=== PATIENT | female | born 1950 | race Caucasian/White ===

== ENCOUNTER 2022-05-02 14:28 | Emergency (ER) | payer MEDICARE, SELFPAY ==
[2022-05-02 14:37] VITALS: BP 164/93; PULSE 75; RESP 18; TEMP 35.9; O2SAT 99
--- NOTE | 2022-05-02 15:15 | DI.RAD_ITS ---
Exam(s) XR KNEE LT 3V AP,LAT,KUSUM EXAM: XR KNEE LT 3V AP,LAT,KUSUM CLINICAL HISTORY: lateral knee pain. TECHNIQUE: 2D digital imaging was performed of the left knee. Three images were obtained. AP, late ral and PA tunnel views were obtained. COMPARISON: No exams were available for comparison FINDINGS: BONES: No acute fracture is present. No bony destructive lesion is seen. JOINTS: The knee is normally aligned. No joint effusion is seen. Small spurs are seen at the posterio r patella. SOFT TISSUE: Normal. IMPRESSION: No acute abnormality. DATA REPOSITORY: RADIATION DOSE DELIVERED:
--- NOTE | 2022-05-02 15:15 | DI.RAD_ITS ---
Exam(s) XR WRIST LT COMPLETE EXAM: XR WRIST LT COMPLETE CLINICAL HISTORY: deformity. TECHNIQUE: 2D digital imaging was performed of the left wrist. Three images were obtained. PA, obl ique and lateral views were obtained. COMPARISON: No exams were available for comparison FINDINGS: BONES: There is an acute common fracture through the distal metaphysis of the left radius. There gregory s appear to be extension into the radiocarpal joint. The distal fracture is dorsally angulated. The re also appears to be a fracture through the ulnar styloid process which is displaced. No bony destr uctive lesion is seen. JOINTS: The carpal bones are normally aligned. SOFT TISSUE: There is soft tissue swelling. IMPRESSION: 1. Angulated intra-articular distal radial fracture. 2. Ulnar styloid process fracture. DATA REPOSITORY: RADIATION DOSE DELIVERED:
--- NOTE | 2022-05-02 15:15 | DI.RAD_ITS ---
Exam(s) XR ANKLE LT COMPLETE EXAM: XR ANKLE LT COMPLETE CLINICAL HISTORY: lateral knee pain TECHNIQUE: 2D digital imaging was performed of the left ankle. Three images were obtained. AP, lat eral and oblique views were obtained. COMPARISON: No exams were available for comparison FINDINGS: BONES: No acute fracture is present. No bony destructive lesion is seen. JOINTS:The ankle mortise is normally aligned. SOFT TISSUE: Normal. IMPRESSION: No acute fracture or dislocation. DATA REPOSITORY: RADIATION DOSE DELIVERED:
--- NOTE | 2022-05-02 15:39 | ED.GENADUL_ITS ---
Discharge Plan Disposition Patient Disposition: Home Condition: Good Discharge Details Clinical Impression: Closed fracture of left distal radius, Injury while downhill skiing, Fracture of ulnar styloid Primary Care Provider: Diya,Local ED Provider: Kosta De La Cruz Home Meds and New Rx's Prescriptions: No Action clonazepam 0.5 mg Tablet 0.5 mg PO BID escitalopram oxalate 20 mg Tablet 20 mg PO DAILY levothyroxine 75 mcg Tablet 75 mcg PO DAILY omeprazole 20 mg Capsule,Delayed Release(Dr/Ec) 20 mg PO DAILY selenium 200 mcg Capsule 200 mcg PO QDAY valacyclovir 500 mg Tablet 500 mg PO BID cholecalciferol (vitamin D3) [Vitamin D3] 125 mcg (5,000 unit) Tablet 5,000 unit PO DAILY cyclobenzaprine 10 mg Tablet 10 mg PO TID PRN albuterol 90 mcg/actuation Aerosol 90 mcg INHALATION Discharge Instructions Instructions: Wrist Fracture in Adults (ED) Additional Instructions: At this time your x-ray of your knee and ankle are negative, however as you know there was a fracture of your wrist that was reduced by Dr. Subramanian. They would l charan to follow-up with you closely, they will contact you Thursday morning for an appointment time. In the meantime please take Tylenol as needed, ice the wrist frequently, and take the [place] pain pills only as needed for breakthrough pain. If you notice any worsening pain, viselike sensation, new numbness or tingling, return immediately for reassessment. If you notice any worsening of your symptoms, or any new symptoms such as vomiting, diarrhea, fever, chills, shortness of breath, chest pain, numbness, weakness, or fainting , please return immediately to the emergency department for reevaluation. Please follow up with your primary care provider as soon as possible for reassessment and reevaluation. As always, it was a pleasure participating in your medical care today. Referrals: Thomas Subramanian MD [ [facility]YS[facility]] - Medical Decision Making 71-year-old female with a past medical history of right hand dominance, previous left wrist fracture, previous left ankle fracture, and previous left knee meniscal injury, as well as hypothyroidism and mild depression who presents today for evaluation after ski injury. Patient states that she was skiing and she fell onto her left knee and left ankle, twisting both of these, and also twisted her left wrist with her ski pole. Pain was immediate. She was brought down by the ski team. She has pain with movement of the wrist knee and ankle. She denies any numbness or tingling. She did not hit her head. No other trauma, no other complaints or pain. Exam demonstrates notable tenderness at the left wrist at the distal aspect of the radius and ulna, with angulation concerning for fracture. Neurovascular exam distally is notably intact. Left knee demonstrates mild lateral tenderness, left ankle demonstrates mild lateral tenderness. Fracture unlikely for the knee and ankle, suspect ligamentous injury. We will get x-ray of the knee, ankle, and wrist. We will treat with Tylenol, ice, monitor closely and reassess. 5 PM X-ray of the knee and ankle are negative for acute process. There is clear fracture of the left wrist at the distal radius and the ulnar styloid process. Due to the size and nature of the fracture, it certainly does need reduction. Unfortunately right now secondary to staffing we do not have the appropriate nursing staff and respiratory therapy staff to perform a conscious sedation. We will wait until 7 PM for staff to perform this. 6:[address] Thomas Subramanian was watching the board, and he did come over to offer assistance. He volunteered to do a hematoma block of the patient. Patient agreed and consented to this. Dr. Subramanian performed hematoma block and subsequent reduction. He recommends follow-up in the next 1 to 2 weeks. He will contact the patient on Thursday for her appointment time. We will get repeat x-ray at this time post reduction. 7:27 PM Repeat x-ray shows notable improvement, secondary to an excellent reduction by Dr. Subramanian. Patient on reassessment demonstrates brisk capillary refill, good neurovascular exam, no signs of neurovascular compromise. Patient appropriate and stable for discharge. I have extensively reviewed the treatment plan and discharge instructions with the patient and their family. I have addressed all patient concerns at this time. The patient and family was made aware of what symptoms to monitor for that would warrant a return to the emergency department. Discussed the plan with the patient and family, they demonstrate verbal understanding and agreement with our assessment and plan at this time. The documentation in this chart was dictated using [employer] dictation software. Please excuse any dictation errors. FINDINGS: Tubes, catheters and devices: Splint in place. Bones/joints: Distal radial metaphyseal and articular fractures demonstrates 8 mm impaction at the lateral cortical margin with about 4 mm residual posterior displacement of the distal fragment which is unchanged, without significant angulation currently. Ulnar styloid avulsion with 7 mm lateral displacement of the avulsion fragment not significantly changed. No gross carpal bone fracture or malalignment. Visualized metacarpals and phalanges are intact. Soft tissues: Soft tissue swelling around the wrist. IMPRESSION: Splint in place with improved post reduction alignment of the distal radial fracture, now without significant angulation although there is persistent displacement and impaction. Displaced ulnar styloid avulsion unchanged. Thank you for allowing us to participate in the care of your patient. Dictated and Authenticated by: Shahriar Vasques MD 05/02/2022 7:18 PM Eastern Time ([place] & [place] FINDINGS: BONES: There is an acute common fracture through the distal metaphysis of the left radius. There does appear to be extension into the radiocarpal joint. The distal fracture is dorsally angulated. There also appears to be a fracture through the ulnar styloid process which is displaced. No bony destructive lesion is seen. JOINTS: The carpal bones are normally aligned. SOFT TISSUE: There is soft tissue swelling. IMPRESSION: 1. Angulated intra-articular distal radial fracture. 2. Ulnar styloid process fracture. FINDINGS: BONES: No acute fracture is present. No bony destructive lesion is seen. JOINTS: The knee is normally aligned. No joint effusion is seen. Small spurs are seen at the posterior patella. SOFT TISSUE: Normal. IMPRESSION: No acute abnormality. FINDINGS: BONES: No acute fracture is present. No bony destructive lesion is seen. JOINTS:The ankle mortise is normally aligned. SOFT TISSUE: Normal. IMPRESSION: No acute fracture or dislocation. HPI General Date/Time Provider Initiated Documentation: 05/02/22 15:12 . HPI Narrative: 71-year-old female with a past medical history of right hand dominance, previous left wrist fracture, previous left ankle fracture, and previous left knee meniscal injury, as well as hypothyroidism and mild depression who presents today for evaluation after ski injury. Patient states that she was skiing and she fell onto her left knee and left ankle, twisting both of these, and also twisted her left wrist with her ski pole. Pain was immediate. She was brought down by the ski team. She has pain with movement of the wrist knee and ankle. She denies any numbness or tingling. She did not hit her head. No other trauma, no other complaints or pain. Related Data Home Medications Medication Instructions Recorded Confirmed albuterol 90 mcg/actuation aerosol 90 mcg inhalation 05/02/22 inhaler cholecalciferol (vitamin D3) 125 5,000 unit PO DAILY 05/02/22 05/02/22 mcg (5,000 unit) tablet (Vitamin D3) clonazepam 0.5 mg tablet 0.5 mg PO BID anxiety 05/02/22 05/02/22 cyclobenzaprine 10 mg tablet 10 mg PO TID PRN 05/02/22 05/02/22 escitalopram oxalate 20 mg tablet 20 mg PO DAILY 05/02/22 05/02/22 levothyroxine 75 mcg tablet 75 mcg PO DAILY 05/02/22 05/02/22 omeprazole 20 mg capsule,delayed 20 mg PO DAILY 05/02/22 05/02/22 release selenium 200 mcg capsule 200 mcg PO QDAY 05/02/22 05/02/22 valacyclovir 500 mg tablet 500 mg PO BID 05/02/22 05/02/22 General Stated Complaint: Orthopedic HIREN: 3 Review of Systems All systems reviewed & are unremarkable except as noted in HPI and below PFSH All Active Problems (Updated 05/02/22 @ 19:29 by Kosta De La Cruz DO) Injury while downhill skiing (Acute) Fracture of ulnar styloid (Acute) Closed fracture of left distal radius (Acute 05/02/22) Social History Smoking risk assessment performed?: No Alcohol Intake: current Alcohol Intake frequency: holidays/special occasions only Alcohol type: other Substance use type: does not use Do you feel safe at home: Yes Do you feel safe in your relationship?: Yes Exam Narrative Exam Narrative: 1.Const: Well-nourished, Well-developed, appearing stated age 2.Eyes: PERRL, no conjunctival injection, and symmetrical lids. 3.ENT: Atraumatic external nose and ears. Moist MM. Neck: Symmetric, trachea midline, No thyromegaly. 4.CVS: +S1/S2, No murmurs or gallops. Peripheral pulses 2+ and equal in all extremities. Brisk capillary refill in all extremities. 5.RESP: Unlabored respiratory effort. Clear to auscultation bilaterally. No wheezes rales or rhonchi 6.GI: Soft, Nontender/Nondistended, No hepatosplenomegaly. No guarding or rebound. 7.MSK: Left wrist: Tenderness over the distal radius and ulna, mild dorsal angulation and deformity. Brisk capillary refill, good distal sensation, good radial pulse. Good ug designer strength. Pain with any movement of the wrist though. No mid radial ulnar or proximal radial ulnar or elbow tenderness. Left knee: Left knee demonstrates tenderness on the lateral aspect of the left knee, pain is made worse with valgus stressing, no pain with Diamante's test, no pain with anterior posterior drawer test. Knee is otherwise stable. Minimal effusion. No posterior pain on palpation of the bursa. Left ankle: Left ankle demonstrates mild effusion just distal to the distal fibula. No instability. Mild pain with plantar and dorsiflexion. No redness or deformity. 8.Skin: Warm, Dry. No rashes or lesions. 9.Neuro: community engagement coordinator II-XII grossly intact. Sensation grossly intact, no focal neurologic deficits. 10.Psych: (AAO) x3. Appropriate mood and affect Course Vital Signs Vital signs: Vital Signs Temperature 35.9 C L 05/02/22 14:37 Pulse 75 05/02/22 14:37 Respiratory Rate 18 05/02/22 14:37 Blood Pressure 164/93 H 05/02/22 14:37 Pulse Oximetry 99 05/02/22 14:37 Temperature 35.9 C L 05/02/22 14:37 Temperature Source Tympanic 05/02/22 14:37 Pulse 75 05/02/22 14:37 Respiratory Rate 18 05/02/22 14:37 Respiratory Effort 05/02/22 14:41 Blood Pressure 164/93 H 05/02/22 14:37 Blood Pressure Position Sitting 05/02/22 14:37 Pulse Oximetry 99 05/02/22 14:37 Oxygen Delivery Method Room Air 05/02/22 14:37 Oxygen Flow Rate 0 05/02/22 14:37 Pain Level 8 05/02/22 14:37
[2022-05-02] MEDS: Acetaminophen 500 MG TAB 1000 MG PO (16:07)
[2022-05-02 16:08] VITALS: BP 168/97; PULSE 77; TEMP 37.1; O2SAT 98
--- NOTE | 2022-05-02 18:15 | DI.RAD_ITS ---
Exam(s) XR WRIST LT COMPLETE EXAM: XR WRIST LT COMPLETE CLINICAL HISTORY: post reduction. TECHNIQUE: 2D digital imaging was performed. Three views. COMPARISON: CR XR WRIST LT COMPLETE from 05/02/2022 FINDINGS: A splint is now in place. The alignment of the previously noted distal radial fracture is improved f rom prior. Ulnar styloid fracture unchanged. DATA REPOSITORY: RADIATION DOSE DELIVERED:
--- NOTE | 2022-05-02 18:19 | OCONE_ITS ---
Assessment and Plan Assessment and plan (1) Closed fracture of left distal radius: Status: Acute Assessment and plan: 71-year-old female with widely displaced, intra-articular left distal radius Fell skiing today at [employer]. Obvious left wrist deformity and significant pain. Denies any numbness or tingling. [id number]. Prior left wrist fracture described as not bad about 6 years ago. Other orthopedic fractures. Medical history negative for any significant cardio or pulmonary problems. Does have anxiety, uses Lexapro, and GERD. No other injuries. Review of systems otherwise negative. Nonsmoker. Left wrist examined. Obvious dorsal angulation deformity. Significant discomfort about the wrist site. Forearm compartments soft. No open wounds. Able to demonstrate intact flexion extension all fingers and thumb with encouragement. Sensation tact throughout light touch. Brisk cap refill. We discussed the options. Will probably need surgical intervention like ORIF given significant displacement and intra-articular fragments. At this time, needs reduction to improve alignment for comfort, soft tissues, and tendons and neurovascular structures. Patient preference for anesthesia or sedation for any procedure, but would also prefer orthopedic manipulation/reduction. Nursing staff not available for conscious sedation at this time. Shared decision to proceed with hematoma block, which the patient tolerated reasonably well with good control of pain discomfort about the fracture site, but volar ulnar discomfort at times. Neurovascular intact postprocedure. Usual precautions given. Post?reduction x-rays show improved angulation, but unstable fracture pattern Instructed on strict elevation to minimize swelling and discomfort. Wiggle fingers and thumb to prevent stiffness. Maintain plaster splint clean dry and intact. [facility] will call her on Thursday to arrange for follow- up with myself or Dr. Jay next week. The patient and her had all questions answered. They agree and understand treatment plan. Discussed with the emergency room doctor [facility] All Active Problems (Updated 05/02/22 @ 19:29 by Kosta De La Cruz DO) Injury while downhill skiing (Acute) Fracture of ulnar styloid (Acute) Closed fracture of left distal radius (Acute 05/02/22) Social History Smoking risk assessment performed?: No Alcohol Intake: current Alcohol Intake frequency: holidays/special occasions only Alcohol type: other Substance use type: does not use Do you feel safe at home: Yes Do you feel safe in your relationship?: Yes Results Last Vital Signs Temp 98.8 F 05/02/22 16:08 Pulse 77 05/02/22 16:08 Resp 18 05/02/22 14:37 BP 168/97 H 05/02/22 16:08 Pulse Ox 98 05/02/22 16:08 Procedures Orthopedic Fracture Reduction Left wrist: Time out performed: Yes (verbal) Side: left Fracture reduction location: radius (distal radius/ wrist) Analgesia: hematoma block Technique: direct manipulation Post-reduction x-rays demonstrate: acceptable reduction Post-reduction neuro exam: intact Post-reduction vascular exam: intact Splint applied: Yes (plaster sugartong) Patient tolerated procedure: well and no complications
--- NOTE | 2022-05-02 19:18 | DI.VRAD_ITS ---
PROCEDURE INFORMATION: Exam: XR Left Wrist Exam date and time: 05/02/2022 7:01 PM Age: 71 years old Clinical indication: Other: Post reduction TECHNIQUE: Imaging protocol: Radiologic exam of the Left wrist. Views: 3 or more views. COMPARISON: CR XR WRIST LT COMPLETE 05/02/2022 4:29 PM FINDINGS: Tubes, catheters and devices: Splint in place. Bones/joints: Distal radial metaphyseal and articular fractures demonstrates 8 mm impaction at the lateral cortical margin with about 4 mm residual posterior displacement of the distal fragment which is unchanged, without significant angulation currently. Ulnar styloid avulsion with 7 mm lateral displacement of the avulsion fragment not significantly changed. No gross carpal bone fracture or malalignment. Visualized metacarpals and phalanges are intact. Soft tissues: Soft tissue swelling around the wrist. IMPRESSION: Splint in place with improved post reduction alignment of the distal radial fracture, now without significant angulation although there is persistent displacement and impaction. Displaced ulnar styloid avulsion unchanged. Dictated and Authenticated by: Shahriar Vasques MD. Ordering:BRIAN Brambila MD
[2022-05-02 19:29] VITALS: BP 152/83; PULSE 78; RESP 16; TEMP 36.9; O2SAT 97
== END 2022-05-02 20:38 | disposition home or self-care (01) ==
PROVIDERS: Emergency Provider Student in an Organized Health Care Education/Training Program
DX: S52.592A Other fractures of lower end of left radius, initial encounter for closed fracture (principal); V00.321A Fall from snow-skis, initial encounter; S52.612A Displaced fracture of left ulna styloid process, initial encounter for closed fracture; M25.562 Pain in left knee; S99.812A Other specified injuries of left ankle, initial encounter
CPT/HCPCS: 25605; 73562; 99283; 73110; 73610

== ENCOUNTER 2022-05-09 10:35 | Day surgery (SDC) | payer MEDICARE, SELFPAY ==
[2022-05-09] VITALS (9 sets, daily range): BP systolic 146–185; BP diastolic 65–91; PULSE 60–74; RESP 12–19; TEMP 36.2–36.6; O2SAT 97–100; BMI 27.3
--- NOTE | 2022-05-09 11:25 | W.PM.DSUDISC ---
Date of service: 05/09/22 Time of Service: 12:01 Discharge Plan Disposition Patient Disposition: Home Condition: Good Discharge Details Reason For Visit: Left distal radius fracture Attending Provider: Darryl Jay Primary Care Provider: Diya,Local Home Meds and New Rx's Prescriptions: New acetaminophen 500 mg tablet 500 mg PO Q6H PRN (Reason: pain) Qty: 60 2RF ibuprofen 600 mg tablet 600 mg PO TID PRN (Reason: pain) Qty: 60 0RF hydromorphone 2 mg tablet 2 mg PO Q4H PRN (Reason: pain) Qty: 10 0RF Continued clonazepam 0.5 mg Tablet 0.5 mg PO BID escitalopram oxalate 20 mg Tablet 20 mg PO DAILY levothyroxine 75 mcg Tablet 75 mcg PO DAILY omeprazole 20 mg Capsule,Delayed Release(Dr/Ec) 20 mg PO DAILY selenium 200 mcg Capsule 200 mcg PO QDAY valacyclovir 500 mg Tablet 500 mg PO BID cholecalciferol (vitamin D3) [Vitamin D3] 125 mcg (5,000 unit) Tablet 5,000 unit PO DAILY cyclobenzaprine 10 mg Tablet 10 mg PO TID PRN albuterol 90 mcg/actuation Aerosol 90 mcg INHALATION PRN PRN Discharge Instructions Additional Instructions: Wrist Fracture Fixation Discharge Instructions Activity: You should keep the hand/wrist elevated as much as possible for the first few days. You may use the other fingers as tolerated but avoid trying to do too much too soon. You may perform light activities with the splint in place. Dressing/Cast: Your splint should stay in place at all times. Do NOT get it wet. You may loosen the AMBERLY wrap if you feel it is too tight and then rewrap more loosely. Medications: - You should take Tylenol and Ibuprofen for baseline pain control. - You have been prescribed a stronger pain medication, Hydromorphone, for breakthrough pain. - You may apply ice over the wrist, just double bag so it doesn't get wet. Follow-up: 10-14 days Equipment/Supplies: Splint and Sling Activity:: Elevate Remove Dressings/Wound Care:: Do Not Remove Shower/Bathe:: Cover Diet:: As Tolerated Discharge Orders Discharge Orders: Discharge Order (Routine); Ordered 05/09/22 Ordered By: Angela Romero DS: Diagnosis Discharge Diagnosis (1) Closed fracture of left distal radius: Status: Acute
--- NOTE | 2022-05-09 11:32 | W.ANESPRE ---
General Info Date of Service Date Performed: 05/09/22 Height: 5 ft 1 in Weight: 65.771 kg Body Mass Index (BMI): 27.3 Surgical Procedure: Operation Date: 05/09/22 12:10 Proposed Procedure Side Surgeon p Wrist ORIF Distal Radius Left Darryl Jay MD Meds Allergies and Home Medications Allergies Allergy/AdvReac Type Severity Reaction Status Date / Time erythromycin base Allergy Severe Anaphylaxis Unverified 05/07/22 14:55 codeine Allergy Intermediate Itching Unverified 05/07/22 14:55 goldenseal Allergy Unknown Other (See Unverified 05/07/22 14:55 Comment) ketorolac [From Toradol] Allergy Unknown Other (See Unverified 05/07/22 14:55 Comment) Penicillins Allergy Unknown Other (See Unverified 05/07/22 14:55 Comment) prednisone Allergy Unknown Other (See Unverified 05/07/22 14:55 Comment) aspirin Allergy Unknown Other (See Uncoded 05/07/22 14:55 Comment) bees Allergy Unknown Other (See Uncoded 05/07/22 14:55 Comment) Home Medication Medication Instructions Recorded albuterol 90 mcg/actuation aerosol 90 mcg inhalation PRN PRN 05/02/22 inhaler cholecalciferol (vitamin D3) 125 5,000 unit PO DAILY 05/02/22 mcg (5,000 unit) tablet (Vitamin D3) clonazepam 0.5 mg tablet 0.5 mg PO BID anxiety 05/02/22 cyclobenzaprine 10 mg tablet 10 mg PO TID PRN 05/02/22 escitalopram oxalate 20 mg tablet 20 mg PO DAILY 05/02/22 levothyroxine 75 mcg tablet 75 mcg PO DAILY 05/02/22 omeprazole 20 mg capsule,delayed 20 mg PO DAILY 05/02/22 release selenium 200 mcg capsule 200 mcg PO QDAY 05/02/22 valacyclovir 500 mg tablet 500 mg PO BID 05/02/22 acetaminophen 500 mg tablet 500 mg PO Q6H PRN pain #60 tabs 05/09/22 hydromorphone 2 mg tablet 2 mg PO Q4H PRN pain #10 tabs 05/09/22 ibuprofen 600 mg tablet 600 mg PO TID PRN pain #60 tabs 05/09/22 Current Visit Medications: Current Medications Generic Name Dose Route Start Last Admin Trade Name Freq PRN Reason Stop Dose Admin Acetaminophen 650 mg 05/09/22 11:24 Acetaminophen 325 Mg Tab PO Q4H PRN PRN Ringer's Solution 1,000 mls @ 80 mls/hr 05/09/22 06:00 IV 05/09/22 23:59 INFUSION RASHEL Cefazolin Sodium/Dextrose 2 gm in 50 mls @ 100 mls/hr 05/09/22 06:00 Ancef Duplex IVPB 05/09/22 23:59 PREOP RASHEL IV Miscellaneous Supplies 1 each 05/09/22 06:00 Iv Access IV 05/09/22 23:59 DIRECTED RASHEL Oxycodone HCl 5 mg 05/09/22 11:24 Oxycodone 5 Mg Tab PO Q3H PRN PRN Pain Sodium Chloride 0 ml 05/09/22 06:00 Normal Saline Flush 10 Ml Syr IV 05/09/22 23:59 PRN PRN Sodium Chloride 0 ml 05/09/22 06:00 Normal Saline 10 Ml Vial IJ 05/09/22 23:59 DIRECTED PRN Sterile Water 0 ml 05/09/22 06:00 Water,Injection,Sterile 10 Ml Vial IJ 05/09/22 23:59 DIRECTED PRN PFSH Active Problems Active Problems: Problem Status Onset Code Closed fracture of left distal radius 05/02/22 S52.502A Injury while downhill skiing Y93.23 Fracture of ulnar styloid S52.613A Medical History Medical History Anxiety and depression GERD (gastroesophageal reflux disease) Heart murmur benign, EKG's per pt. states WNL Hiatal hernia History of esophageal dilatation History of trigger finger Hx of bladder problems hx of interstitial cystitis Hypothyroidism Surgical History Surgical History History of esophagogastroduodenoscopy (EGD) Hx of arthroscopic knee surgery Hx of bladder repair surgery Bladder stimulator in situ Hx of cataract extraction Hx of cystoscopy Hx of dilation and curettage Hx of hysterectomy Hx of tonsillectomy Tobacco Smoking/Tobacco Use Status: Never Alcohol Alcohol Intake: current Alcohol intake frequency: holidays/special occasions only Alcohol type: other Substance Use Substance use type: does not use Vital Signs and Lab Results Lab Results Blood Type / Crossmatch: No Data to Display Complete Blood Count: No Data to Display Complete Metabolic Panel: No Data to Display Liver Function Panel: No Data to Display Coagulation Panel: No Data to Display Cardiac Panel: No Data to Display Arterial Blood Gas: No Data to Display Venous Blood Gas: No Data to Display Pancreas Panel: No Data to Display Thyroid Panel: No Data to Display Infectious Disease: No Data to Display Blood Cultures: No Data to Display Toxicology Panel: No Data to Display Anesthesia Assessment and Plan Anesthesia History Personal History: No History of Anesthesia Complications Family History: No Family History of Anesthesia Complications Exercise Tolerance Exercise Tolerance: Metabolic Equivalents>4 Pertinent Negatives Pertinent Negatives: No Major Cardiovascular Symptoms or Complaints and No Major Pulmonary Symptoms or Complaints Cardiac & Pulmonary Exam Cardiac Exam: Normal S1/S2 Heart Sounds Pulmonary Exam: Clear Bilateral Breath Sounds Implantable Cardiac Device Does patient have a Pacemaker or an ICD?: No Airway Exam Known Difficult Airway: No Mallampati Class: 2 Mouth Opening: Narrow (< 3cm) Thyromental Distance: Greater than 3 cm Neck Range of Motion: Full ROM Neck Circumference: Normal Teeth Condition: Normal Dentition ASA Classification ASA Score: ASA 2 Emergency Case?: No NPO Status NPO Status: NPO Clears >2 hours, Solids >8 hours Anesthesia Plan Resuscitation Status: Full Code Anesthesia Technique: General Anesthesia Airway Planned: LMA Pain Management: Surgeon and patient request nerve block Monitors Used: Standard Monitors
[2022-05-09] MEDS: Lactated Ringers 1,000 ML 80 ML IV (11:45)
--- NOTE | 2022-05-09 11:56 | HPE_ITS ---
Assessment and Plan Assessment and plan (1) Closed fracture of left distal radius: Status: Acute Assessment and plan: Elena is a 71-year-old [id number] female who suffered a left distal radius and ulna fracture. The distal radius fracture fragment is intra- articular, comminuted, and displaced. Given the intra-articular nature of the fracture with the obvious shortening and dorsal translation displacement I recommended operative fixation. I reviewed the technical features of this case. I discussed the risk to include bleeding, infection, pain, stiffness, damage nerves and vessels, damage to muscle and tendons, hardware prominence, heart failure, malunion, nonunion, need for repeat procedures. Despite these risk, she elects to proceed. All questions were answered. We will try hydromorphone to see if this is less irritating than the oxycodone. History of Present Illness History of Present Illness Chief Complaint: Left distal radius and ulna fracture Narrative: Elena is a 71-year-old active female who fell while skiing at [employer] a week ago. She suffered an intra-articular displaced distal radius fracture with an ulnar fracture as well. Close reduction was performed Dr. Subramanian. This significantly improved the reduction however, there still was notable shortening and some displacement. Given her active lifestyle and the intra-articular displaced nature of the fracture I recommended operative fixation. I discussed this with her over the phone previously and once again today. She has had good pain control with the oxycodone although she does have itching issues which has been improved with the use of Benadryl. She denies any chest pain or shortness of breath. She denies any significant medical issues. She did have some numbness and tingling to the thumb but that has improved with rewrapping the splint. Review of Systems All systems reviewed & are unremarkable except as noted in HPI and below PFSH All Active Problems Closed fracture of left distal radius (Acute 05/02/22) Injury while downhill skiing (Acute) Fracture of ulnar styloid (Acute) Medical History Anxiety and depression GERD (gastroesophageal reflux disease) Heart murmur benign, EKG's per pt. states WNL Hiatal hernia History of esophageal dilatation History of trigger finger Hx of bladder problems hx of interstitial cystitis Hypothyroidism Surgical History History of esophagogastroduodenoscopy (EGD) Hx of arthroscopic knee surgery Hx of bladder repair surgery Bladder stimulator in situ Hx of cataract extraction Hx of cystoscopy Hx of dilation and curettage Hx of hysterectomy Hx of tonsillectomy Social History Smoking/Tobacco Use Status: Never Smoking risk assessment performed?: Yes Alcohol Intake: current Alcohol Intake frequency: holidays/special occasions only Alcohol type: other Drug use: Never Substance use type: does not use Do you feel safe at home: Yes Do you feel safe in your relationship?: Yes Meds Allergies and Home Medications Allergies Allergy/AdvReac Type Severity Reaction Status Date / Time erythromycin base Allergy Severe Anaphylaxis Unverified 05/07/22 14:55 codeine Allergy Intermediate Itching Unverified 05/07/22 14:55 goldenseal Allergy Unknown Other (See Unverified 05/07/22 14:55 Comment) ketorolac [From Toradol] Allergy Unknown Other (See Unverified 05/07/22 14:55 Comment) Penicillins Allergy Unknown Other (See Unverified 05/07/22 14:55 Comment) prednisone Allergy Unknown Other (See Unverified 05/07/22 14:55 Comment) aspirin Allergy Unknown Other (See Uncoded 05/07/22 14:55 Comment) bees Allergy Unknown Other (See Uncoded 05/07/22 14:55 Comment) Home Medications Medication Instructions Recorded Confirmed Type albuterol 90 mcg/actuation aerosol 90 mcg inhalation PRN PRN 05/02/22 05/09/22 History inhaler cholecalciferol (vitamin D3) 125 5,000 unit PO DAILY 05/02/22 05/09/22 History mcg (5,000 unit) tablet (Vitamin D3) clonazepam 0.5 mg tablet 0.5 mg PO BID anxiety 05/02/22 05/09/22 History cyclobenzaprine 10 mg tablet 10 mg PO TID PRN 05/02/22 05/09/22 History escitalopram oxalate 20 mg tablet 20 mg PO DAILY 05/02/22 05/09/22 History levothyroxine 75 mcg tablet 75 mcg PO DAILY 05/02/22 05/09/22 History omeprazole 20 mg capsule,delayed 20 mg PO DAILY 05/02/22 05/09/22 History release selenium 200 mcg capsule 200 mcg PO QDAY 05/02/22 05/09/22 History valacyclovir 500 mg tablet 500 mg PO BID 05/02/22 05/09/22 History acetaminophen 500 mg tablet 500 mg PO Q6H PRN pain #60 tabs 05/09/22 Rx ibuprofen 600 mg tablet 600 mg PO TID PRN pain #60 tabs 05/09/22 Rx oxycodone 5 mg tablet 5 mg PO Q6H PRN severe 05/09/22 Rx post-operative pain #6 tabs Exam Resp Auscultation: clear to auscultation bilaterally Cardio Rate: regular rate Rhythm: regular rhythm Extrem Other: Evaluation of the left hand shows some swelling in the fingers. Sensation intact light touch of the median, radial, ulnar nerve. Capillary fill less than 2 seconds. Results Imaging Imaging Studies: X-ray of the left wrist performed on Thursday including close reduction film shows a displaced intra-articular fracture of the left distal radius. There is intra- articular split going into the scapholunate interval. There is notable shortening and dorsal displacement and translation. There also appears to be a radially displaced ulnar styloid component. Last Vital Signs Temp 36.2 C L 05/09/22 11:15 Pulse 68 05/09/22 11:15 Resp 16 05/09/22 11:15 BP 167/91 H 05/09/22 11:15 Pulse Ox 98 05/09/22 11:15
[2022-05-09] MEDS: ceFAZolin 2 GM/50 ML BAG IVPB (12:50)
--- NOTE | 2022-05-09 13:13 | W.ANESNERVE ---
Nerve Block Single Injection Procedure Date and Time Date Performed: 05/09/22 Procedure Start: 11:50 Location Where Procedure Performed Procedure Location: Day Surgery Unit Reason Performed: Postoperative Analgesia Requesting Provider: Darryl Jay Timeout Performed Timeout Performed: Yes Monitoring Used ECG, Blood Pressure, SpO2 and See EMR for corresponding vital signs Sterility Sterility: Hand Hygiene, Surgical Cap, Surgical Mask, Sterile Gloves and Chlorhexidine Sedation Given During Procedure Sedation Given (Indicate Dose Given): Versed IV Dose:: 2mg Patient Mental Status Patient Mental Status: Awake Nerve Block 1st Nerve Block: Laterality: Left Block Type: Supraclavicular Ultrasound Image Saved?: Yes Needle / Catheter Used: 100mm SonoPlex II Local Anesthetic Bolus (Indicate Dose Given): Lidocaine used for local infiltration of skin, Injected in 3-5ml increments after negative blood aspiration and Bupivacaine 0.5% Dose:: 20mL Additives (Indicate Dose Given): None Ultrasound: Sterile probe cover and gel used Nerve Stimulator: Not Used Paresthesia: None Procedure Tolerated: No Complications Procedure Outcome: Successful Performed By: Melyssa Pisano
--- NOTE | 2022-05-09 13:16 | W.ANESVAS ---
Midline Placement Date Performed: 05/09/22 Procedure Time: 12:20 Requesting Provider: Darryl Jay Procedure Location: Day Surgery Unit Sedation Given (Indicate Dose Given): MKO Melt PO Dose:: 1 tab Patient Mental Status: Awake Sterility: Hand Hygiene, Surgical Cap, Surgical Mask, Sterile Gloves, Sterile Drape/Sheet and Chlorhexidine Laterality: Right Insertion Site: Basilic Midline Device: PowerGlide Pro 20G Catheter Length: 10 cm Midline Procedure Procedure: 1% Lidocaine to skin and subcutaneous tissue with 25g needle, Vessel accessed with needle, Guidewire placed with ease, Catheter placed without resistance and Guidewire removed Dressing: Tegaderm Applied and Statlock Applied Blood Return: Present Flushes: Easily Ultrasound: Sterile probe cover and gel used Ultrasound Image Saved?: Yes Number of Attempts (See previous attempts in note section): 1 Procedure Tolerated: No Complications and Patient tolerated well Procedure Outcome: Successful Procedure Comment:: Right AC PIV infiltrated, decision made with patient that IV above site of infiltration would be safest option. Discussed potential risks to include infection, bleeding, arterial puncture. Patient verbally agreed to plan, Dr. Jay made aware. Performed By: Melyssa Pisano
[2022-05-09] MEDS: Bupivacaine 0.5% Pres-Free 30 ML VIAL (14:08)
--- NOTE | 2022-05-09 14:22 | DI.RAD_ITS ---
Exam(s) XR WRIST LT LIMITED EXAM: XR WRIST LT LIMITED CLINICAL HISTORY: FRACTURE LEFT DISTAL RADIUS. TECHNIQUE: 2D digital imaging was performed. COMPARISON: No exams were available for comparison FINDINGS: Fluoroscopy was provided during open reduction internal fixation of left wrist fracture distal radius . Placement of volar fixation plate. Procedure report for details. IMPRESSION: Radiation exposure index: Sherrir= 1.0428mGy DATA REPOSITORY: RADIATION DOSE DELIVERED:
--- NOTE | 2022-05-09 14:26 | W.PM.OP ---
Date of service: 05/09/22 Time of Service: 14:26 Operative Note Operative Note DATE OF PROCEDURE: 05/09/22 PRE-OP DIAGNOSIS: Left Distal Radius Fracture POST-OP DIAGNOSIS: same PROCEDURE: Open Reduction and Internal Fixation of Left Distal Radius Fracture (2 articular segments) with Calcium Phosphate Bone Void Filler Application SURGEON: Darryl Jay FACTORY FOCUS TECHNICIAN: Angela Romero ANESTHESIA TYPE: General LMA/ETT and Primary Nerve Block Refer to Anesthesia Record ESTIMATED BLOOD LOSS: 10 PATHOLOGY: none sent TOURNIQUET TIME: 70 COMPLICATIONS: None Patient was transported to: PACU Patient's condition: stable Indications: Elena is a 71 year old right hand dominant female who I have seen for a comminuted, intra-articular distal radius fracture. Given the deformity, displacement, fracture pattern, and effect on daily function, I recommended surgical fixation. I reviewed the risk of the procedure to include bleeding, infection co-pay, stiffness, damage to nerves and vessels, damage to muscles and tendons, malunion, nonunion, hardware prominence, tendon rupture, need for repeat procedures. Despite these risks, the patient elected to proceed. Findings: There is a distal radius fracture which had 2 articular segments and some comminution of the metaphysis. It was reduced and fixed with a Synthes volar locking plate and the bone void was filled with Norian Calcium Phosphate cement.. Procedure Description: Elena was greeted in the preoperative holding area. The correct patient and site was confirmed and marked. The history and physical was updated. The consent was reviewed the patient and signed. A supraclavicular block was administered by anesthesia. The patient was taken to the operating room and placed in the supine position. All bony problems were well-padded. The left arm was placed onto a radiolucent hand table. A nonsterile tourniquet was placed high up on the arm. Prophylactic antibiotics in the form of cefazolin were administered. The left arm was prepped with ChloraPrep and draped in a standard fashion. A timeout was performed for safe surgery. A standard longitudinal incision was made overlying the flexor carpi radialis tendon starting at the distal wrist crease and moving proximally. The skin was incised sharply. The flexor carpi radialis tendon and its sheath is identified. The sheath was opened. The tendon was moved ulnarly in the floor of the sheath was incised. Blunt dissection the flexor pollicis longus muscle belly and tendon were also made radially exposing the pronator quadratus and the distal radius. The printer quadratus was elevated with an ulnar-based flap. This exposed the volar distal radius and the fracture. A rowland elevator was used for full exposure of the volar surface of the distal radius. The primary fracture line was exposed. Using a series of elevators, curettes, and knife, the fracture was fully debrided of any fibrous tissue and callus formation. I used a freer elevator to help mobilize the fragments. There was some comminution seen at the volar metaphyseal fracture line. There is also a split going towards the scapholunate interval. I then performed a closed reduction. Using gentle traction and fracture manipulation, this reduction was held. Fluoroscopic images were used to confirm adequate reduction. This was held in position by a single K wire from the radial styloid into the proximal aspect of the distal radial metaphysis. An appropriately sized Synthes volar locking plate was then placed onto the bony surface of the distal radius. A single K wire was placed through the distal end. Fluoroscopy was once again used to confirm appropriate positioning of the plate on the distal radius. In inspecting these pictures there seem to be some abnormality of the distal radius which I could not quite understand. Further direct evaluation showed that there is some displacement of the ulnar volar segment and lack of height radially and ulnarly. Therefore, I remove the plate. Upon further inspection of the fracture there is a volar segment of bone which had flipped into the intramedullary space of the distal radius. This was removed and once removed the ulnar fragment reduced itself back in line with the volar edge of the radial fragment. This was then held in this position and the K wire was repositioned in the radial styloid and through the proximal aspect of the distal radial metaphysis. A narrow 3-hole Synthes distal radius plate was then placed onto the bone, confirmed to be in a good position with fluoroscopy, and then loosely secured with a K wire. A single nonlocking screw was placed to the distal portion of the plate securing the plate against the bone of the distal radial metaphysis. Once again, the plate was evaluated to make sure it was aligned appropriately. The single screw was also checked to make sure it was in appropriate positioning for trajectory of future screws. The remainder of the screws within the volar locking plate were filled with locking screws. These were made sure not to penetrate the dorsal cortex. Once these were applied the proximal portion of the plate was further reduced down onto the shaft, which further reduce the distal segment. The plate was advanced distally and slightly rotated radially to help reduce the fracture completely. A single 2.7 mm nonlocking screw was placed to the sliding hole and secured. Fluoroscopy was then used against confirm appropriate reduction. Nonlocking screws were placed within the remaining 2 shaft screw holes. Final x-rays were obtained which demonstrated adequate reduction and positioning of hardware. The dorsal sunrise view was also obtained to ensure correct sizing of screws. The first nonlocking screw in the distal aspect of the plate was replaced with a 2 mm shorter locking screw. The wound was then thoroughly irrigated. The pronator quadratus was unable to be reapproximated. The tourniquet was released and there was no notable vascular injury. The fingers were warm and well-perfused. The deep dermal layer was closed with a 2-0 Vicryl. The skin was closed with 4-0 nylon. The wound was dressed with Xeroform, 4 x 4's, web roll. A short arm splint was applied. At the end the case all counts are correct. Patient was transferred back to the PACU in stable condition.
--- NOTE | 2022-05-09 15:27 | W.ANESPOSTOP ---
Postoperative Evaluation Date, Time and Location Date Performed: 05/09/22 Time Performed: 15:27 Patient Location: Day Surgery Unit Vital Signs Most Recent Imported Vital Signs: Most Recent Vital Signs Temp Pulse Resp BP Pulse Ox 36.3 C L 61 16 175/86 H 98 05/09/22 15:13 05/09/22 15:13 05/09/22 15:13 05/09/22 15:13 05/09/22 15:13 Pain Score Most Recent Pain Score: Most Recent Pain Score Pain Level 0 05/09/22 15:13 Assessment Mental Status: Awake (Alert & Oriented to Patient Baseline) Airway and Respiratory Function: Patent airway with normal (patient baseline) respiratory exam Cardiovascular Function: Hemodynamically Stable Hydration Status: Adequately Hydrated Nausea & Vomiting: No Nausea or Vomiting Pain: Pt. Denies Any Pain Peripheral Nerve Block: Regional nerve block not resolved at time of post operative discharge
== END 2022-05-09 16:35 | disposition home or self-care (01) ==
PROVIDERS: Visit Provider Student in an Organized Health Care Education/Training Program
PROC: (CPT 25608; principal; 2022-05-09 12:00)
DX: S52.572A Other intraarticular fracture of lower end of left radius, initial encounter for closed fracture (principal); X58.XXXA Exposure to other specified factors, initial encounter
CPT/HCPCS: 25608; 76942; 73100; J0690; J1100; J2250; J2405; J2704

== ENCOUNTER 2022-05-19 13:25 | Outpatient (CLI) | payer MEDICARE, SELFPAY ==
--- NOTE | 2022-05-19 13:16 | DI.RAD_ITS ---
Exam(s) XR WRIST LT LIMITED EXAM: XR WRIST LT LIMITED INDICATION: 1ST POST OP L DISTAL RADIUS FRACTURE. COMPARISON: CR XR WRIST LT COMPLETE from 05/02/2022 CR,XR XR WRIST LT COMPLETE from 05/02/2022 CR XR WRIST LT LIMITED from 05/09/2022 TECHNIQUE: 2D digital imaging was performed. Two views. FINDINGS: There has been no change in fracture or hardware alignment. No new abnormalities are seen. DATA REPOSITORY: RADIATION DOSE DELIVERED:
== END 2022-05-19 13:26 | disposition home or self-care (01) ==
LOC: DIORS 13:25
PROVIDERS: Visit Provider Student in an Organized Health Care Education/Training Program
DX: S52.502D Unspecified fracture of the lower end of left radius, subsequent encounter for closed fracture with routine healing (principal); X58.XXXD Exposure to other specified factors, subsequent encounter
CPT/HCPCS: 73100

== ENCOUNTER 2022-06-04 14:41 | Outpatient (CLI) | payer MEDICARE, SELFPAY ==
--- NOTE | 2022-06-04 14:15 | DI.RAD_ITS ---
Exam(s) XR WRIST LT LIMITED EXAM: XR WRIST LT LIMITED CLINICAL HISTORY: f/u surgery. TECHNIQUE: 2D digital imaging was performed. Two images were obtained. AP, lateral and oblique view s were obtained. COMPARISON: CR XR WRIST LT LIMITED from 05/19/2022 FINDINGS: BONES: There are stable post operative changes present. No new fracture or dislocation. JOINTS: The joint spaces are well maintained. SOFT TISSUE: Soft tissue swelling of the wrist. IMPRESSION: Stable postoperative changes. DATA REPOSITORY: RADIATION DOSE DELIVERED:
== END 2022-06-04 14:42 | disposition home or self-care (01) ==
LOC: DIORS 14:41
PROVIDERS: Visit Provider Physician Assistant
DX: S52.502D Unspecified fracture of the lower end of left radius, subsequent encounter for closed fracture with routine healing (principal); S93.492D Sprain of other ligament of left ankle, subsequent encounter; X58.XXXD Exposure to other specified factors, subsequent encounter; Z87.81 Personal history of (healed) traumatic fracture
CPT/HCPCS: 73100